=== PATIENT | male | born 2000 | race African-American/Black ===

== ENCOUNTER → 2022-11-21 12:31 | Outpatient (BNVA) | payer OTHER, SELFPAY | PROVIDERS: Visit Provider Physician Assistant Medical | DX: S16.1XXA Strain of muscle, fascia and tendon at neck level, initial encounter (principal); S46.819A Strain of other muscles, fascia and tendons at shoulder and upper arm level, unspecified arm, initial encounter; S93.492A Sprain of other ligament of left ankle, initial encounter; V57.0XXA Driver of pick-up truck or van injured in collision with fixed or stationary object in nontraffic accident, initial encounter; Y04.2XXA Assault by strike against or bumped into by another person, initial encounter; M79.644 Pain in right finger(s); J34.89 Other specified disorders of nose and nasal sinuses | CPT/HCPCS: 99204 ==

== ENCOUNTER → 2022-12-07 13:24 | Outpatient (BNVA) | payer OTHER, SELFPAY | PROVIDERS: Visit Provider Physician Assistant Medical | DX: S16.1XXD Strain of muscle, fascia and tendon at neck level, subsequent encounter (principal); S46.811D Strain of other muscles, fascia and tendons at shoulder and upper arm level, right arm, subsequent encounter; S46.812D Strain of other muscles, fascia and tendons at shoulder and upper arm level, left arm, subsequent encounter; S93.492D Sprain of other ligament of left ankle, subsequent encounter; Y04.8XXD Assault by other bodily force, subsequent encounter; V57 Occupant of pick-up truck or van injured in collision with fixed or stationary object | CPT/HCPCS: 99213 ==